=== PATIENT | female | born 1990 | race Caucasian/White ===

== ENCOUNTER 2017-04-30 09:31 | Inpatient (IN) | payer SELFPAY ==
--- NOTE | 2017-04-30 11:00 | C.PDOC ---
History Of Present Illness Patient is a 27 y/o F with hx of open heart surgery in [place] in 2014 on her "mitral valve" with surgery to valve and "stent" placement. 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 She reports that for the last 2 days she has had persistent b/l sternal chest pain. Denies associated shortness of breath, fever, cough, uri, leg swelling. She reports that she thinks she is . wardsperson:[id number] Time Seen by Provider: 04/30/17 09:55 Chief Complaint (Nursing): Chest Pain Past Medical History Vital Signs: Last Vital Signs Temp 98.8 F 04/30/17 15:38 Pulse 104 H 04/30/17 15:38 Resp 18 04/30/17 15:38 BP 96/67 L 04/30/17 15:38 Pulse Ox 99 04/30/17 15:38 Other Surgeries: mitral valve Family History: States: No Known Family Hx - Social History Hx Alcohol Use: No Hx Substance Use: No Review Of Systems Constitutional: Negative for: Fever, Chills Cardiovascular: Positive for: Chest Pain. Negative for: Palpitations, Orthopnea , Paroxysmal Noc. Dyspnea, Edema, Light Headedness Respiratory: Negative for: Cough, Shortness of Breath, Hemoptysis, SOB with Excertion, Pleuritic Pain, Wheezing Gastrointestinal: Negative for: Nausea, Vomiting, Abdominal Pain, Diarrhea, Constipation Genitourinary: Negative for: Dysuria Neurological: Negative for: Weakness, Numbness Physical Exam - Physical Exam Appears: Well, Non-toxic, No Acute Distress Skin: Normal Color, Warm, Dry Head: Atraumatic, Normacephalic Eye(s): bilateral: Normal Inspection, PERRL, EOMI Neck: Normal ROM Chest: Symmetrical, Other (well healed midline scar) Cardiovascular: Rhythm Regular Respiratory: Normal Breath Sounds, No Rales, No Rhonchi, No Wheezing Gastrointestinal/Abdominal: Soft, No Tenderness, No Mass, No Distention Back: Normal Inspection, No CVA Tenderness ED Course And Treatment - Laboratory Results Result Diagrams: 04/30/17 11:12 04/30/17 11:12 O2 Sat by Pulse Oximetry: 99 Medical Decision Making Medical Decision Making: EKG shows sinus tachycardia at 104bpm. 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 D-dimer negative. Echo done at 1:30. Spoke to side laster staple and echo will not be resulted by today. Concern that patient has hx of rheumatic heart disease and patient could have thrombus, aneurysm or worsening valvular disease. Patient still has chest pain. Spoke to Dr. Worrell. Patient to be kept on tele observation overnight for cardiac monitoring with cardiac reevaluation in am with results of echo. Dr. Vazquez agrees to take patient to his service Abdominal ultrasound showed IUP but will be redone with full bladder for final report as patient is refusing transvaginal ultrasound. Disposition - Disposition Disposition: HOSPITALIZED Disposition Time: 15:34 Condition: FAIR - Clinical Impression Clinical Impression: Chest pain
[2017-04-30 11:19] LABS: BASO % 0.5 % (0.0-2.0); EOS % 0.4 % (0.0-4.0); HEMOGLOBIN 13.3 g/dL (11.0-16.0); LYMPH % 37.8 % (20.0-40.0); MEAN CORPUSCULAR HGB CONC 34.1 g/dL (33.0-37.0); MEAN PLATELET VOLUME 8.6 fL (7.2-11.7); MONO # 0.5 K/uL (0.0-0.8); MONO % 9.8 % (0.0-10.0); NEUT # 2.8 K/uL (1.8-7.0); NEUT % 51.5 % (50.0-75.0); NRBC % 0.1 % (0.0-2.0); RBC 4.57 Mil/uL (3.80-5.20); RED CELL DISTRIBUTION WIDTH 13.1 % (11.5-14.5); WHITE BLOOD COUNT 5.3 K/uL (4.8-10.8)
[2017-04-30 11:26] LABS: INR 1.1; PARTIAL THROMBOPLASTIN TIME 31 SECONDS (21-34); PROTHROMBIN TIME 12.8 SECONDS (9.7-12.2)
[2017-04-30 11:27] LABS: D DIMER < 200 ng/mlDDU (0-243)
--- NOTE | 2017-04-30 11:37 | RAD ---
HISTORY: chest pain COMPARISON: None available TECHNIQUE: Chest, one view. FINDINGS: LUNGS: No focal consolidation. 4 mm nodular density at the right lung base may reflect prominent vessel on end versus calcified granuloma. Please note that chest x-ray has limited sensitivity for the detection of pulmonary masses. PLEURA: No significant pleural effusion identified. No definite pneumothorax . CARDIOVASCULAR: Median sternotomy wires. Cardiac valve prosthesis. Heart size appears within normal limits. OSSEOUS STRUCTURES: No acute osseous abnormality identified. VISUALIZED UPPER ABDOMEN: Mild elevation of the right hemidiaphragm. OTHER FINDINGS: None. IMPRESSION: No acute findings. See above.
[2017-04-30 11:38] LABS: ALBUMIN 4.1 g/dL (3.5-5.0)
[2017-04-30 11:41] LABS: ALB/GLOB RATIO 1.2 (1.0-2.1); AST/SGOT 16 U/L (14-36); BLOOD UREA NITROGEN 5 mg/dL (7-17); GFR AFRICAN-AMERICAN > 60; GFR NON-AFRICAN AMERICAN > 60
[2017-04-30 11:42] LABS: ALT/SGPT 22 U/L (9-52); CALCIUM 8.9 mg/dl (8.6-10.4)
[2017-04-30 11:49] LABS: B-TYPE NATRIURETIC PEPTIDE 494 pg/mL (0-450)
[2017-04-30 12:04] LABS: SQUAMOUS EPITHIAL 9 /hpf (0-5); URINE BILIRUBIN NEGATIVE (NEGATIVE); URINE BLOOD 1+ (NEGATIVE); URINE CLARITY Clear (Clear); URINE COLOR Yellow (YELLOW); URINE GLUCOSE (UA) NORMAL (Normal); URINE LEUKOCYTE ESTERASE NEG Leu/uL (Negative); URINE NITRATE NEGATIVE (NEGATIVE); URINE PROTEIN NEGATIVE (NEGATIVE); URINE UROBILINOGEN NORMAL mg/dL (0.2-1.0)
--- NOTE | 2017-04-30 17:36 | CARD ---
APPROVED REPORT EXAM: Two-dimensional and M-mode echocardiogram with Doppler and color Doppler. Other Information Quality : GoodRhythm : INDICATION Chest Pain M-Mode DIMENSIONS RVDd0.99 (2.1-3.2cm)Left Atrium (MM)2.40 (2.5-4.0cm) IVSd0.70 (0.7-1.1cm)Aortic Root2.31 (2.2-3.7cm) LVDd5.64 (4.0-5.6cm)Aortic Cusp Exc.1.49 (1.5-2.0cm) PWd0.90 (0.7-1.1cm)FS (%) 13 % LVDs4.93 (2.0-3.8cm)LVEF (%)27 (>50%) Aortic Valve AoV Peak Surugiin561.5cm/S[place] Peak GR.8mmHg Mitral Valve MV E Fytxhofz629.2cm/sMV A Yldodifh307.9cm/sMV THA77qw E/A ratio0.8MVA (PHT)4.25cm2 TDI E/Lateral E'0.0E/Medial E'0.0 Tricuspid Valve TR Peak Ghqzquvo563bf/sTR Peak Gr.71cjDkMZLT03htSa LEFT VENTRICLE The Left Ventricle is mildly dilated. There is normal left ventricular wall thickness. The systolic function is moderately to severely impaired. The Ejection Fraction is 30-35%. There is global hypokinesis of the left ventricle. The left ventricular diastolic function is normal. No left ventricle thrombus noted on this study. There is no ventricular septal defect visualized. There is no left ventricular aneurysm. There is no mass noted in the left ventricle. RIGHT VENTRICLE The right ventricle is normal size. There is normal right ventricular wall thickness. The right ventricular systolic function is normal. ATRIA The left atrium size is normal. The right atrium size is normal. The interatrial septum is intact with no evidence for an atrial septal defect. AORTIC VALVE The aortic valve is normal in structure and function. No aortic regurgitation is present. There is no aortic valvular stenosis. There is no aortic valvular vegetation. MITRAL VALVE The mitral valve is normal in structure and function. There is no evidence of mitral valve prolapse. There is no mitral valve stenosis. Mitral regurgitation is mild to moderate. Annuloplasty ring is noted in the mitral position. TRICUSPID VALVE The tricuspid valve is normal in structure and function. There is mild tricuspid regurgitation. There is no tricuspid valve prolapse or vegetation. There is no tricuspid valve stenosis. PULMONIC VALVE The pulmonary valve is normal in structure and function. There is no pulmonic valvular regurgitation. There is no pulmonic valvular stenosis. GREAT VESSELS The aortic root is normal in size. The ascending aorta is normal in size. The pulmonary artery is normal. The IVC is normal in size and collapses >50% with inspiration. PERICARDIAL EFFUSION The pericardium appears normal. There is no pleural effusion. <Conclusion> The Left Ventricle is mildly dilated. The systolic function is moderately to severely impaired. The Ejection Fraction is 30-35%. The left ventricular diastolic function is normal. Annuloplasty ring is noted in the mitral position. Mitral regurgitation is mild to moderate.
--- NOTE | 2017-04-30 17:53 | CP.PCM.HP ---
<Haseeb Arriaga - Last Filed: 04/30/17 20:22> History of Present Illness - History of Present Illness History of Present Illness: PGY-1 H & P for Dr. Rachel Vazquez This is a 27 year old belarusian speaking female with PMHx rheumatic heart disease s/p mitral valve repair and stent who comes in complaining of chest pain. It began yesterday 04/29/17 and has been constant since. It is located diffusely across both sides of her chest with no radiation of pain. Patient is also experiencing pain in both shoulders and the front of the neck. Patient has had this type of pain before in [place] and was discharged without a specific diagnosis explained to the patient. Patient has associated palpitations and dizziness. Patient describes dizziness as feeling that the room is spinning. Patient denies numbness, shortness of breath, rashes. Patient has been given 650 mg Tylenol in the ED and reported improvement in pain. Patient had likely streptococcal infection in [place] described in the ED note as "tonsillitis" which led to development of rheumatic heart disease. Patient states that her mitral valve was blocked and had open heart surgery to repair and stent with a ring. This surgery occurred two and a half years ago. Per patient, she has been on an unknown blood thinner since the surgery but has stopped taking it about 4 months ago without notifying her doctor. Patient states that she did this because she was planning to conceive. Patient is about 6 weeks per b- HCG level interpretation. PMHx: Likely streptococcal infection leading to rheumatic heart disease PSHx: Open heart surgery 2.5 years ago Allergies: NKDA Social: Denies ever smoking. Denies alcohol, drugs. Not currently employed. Family Hx: When asked, patient motioned to the neck but then denied family history upon further questioning. Home Meds: None. Present on Admission - Present on Admission Any Indicators Present on Admission: No Review of Systems - Constitutional Constitutional: absent: Fever, Headache, Weakness - EENT Eyes: absent: Change in Vision Ears: absent: Decreased Hearing Nose/Mouth/Throat: absent: Nasal Congestion - Cardiovascular Cardiovascular: Chest Pain, Palpitations, Rapid Heart Rate - Respiratory Respiratory: absent: Cough, Dyspnea - Gastrointestinal Gastrointestinal: absent: Abdominal Pain, Constipation, Diarrhea, Nausea, Vomiting - Genitourinary Genitourinary: absent: Dysuria - Musculoskeletal Musculoskeletal: Neck Pain - Neurological Neurological: Dizziness. absent: Numbness, Headaches, Tingling, Weakness - Endocrine Endocrine: Palpitations Past Patient History - Past Social History Smoking Status: Never Smoked - PSYCHIATRIC Hx Substance Use: No - SURGICAL HISTORY Hx Valve Replacement: Yes - ANESTHESIA Hx Anesthesia: Yes Meds Allergies/Adverse Reactions: Allergies Allergy/AdvReac Type Severity Reaction Status Date / Time No Known Allergies Allergy Verified 04/30/17 09:48 Physical Exam - Constitutional Appears: No Acute Distress - Head Exam Head Exam: ATRAUMATIC, NORMAL INSPECTION, NORMOCEPHALIC - Eye Exam Eye Exam: EOMI, PERRL - ENT Exam ENT Exam: Mucous Membranes Moist - Respiratory Exam Respiratory Exam: Clear to Auscultation Bilateral - Cardiovascular Exam Cardiovascular Exam: Tachycardia, REGULAR RHYTHM, +S1, +S2 - GI/Abdominal Exam GI & Abdominal Exam: Normal Bowel Sounds, Soft - Extremities Exam Extremities exam: Negative for: pedal edema, tenderness - Neurological Exam Neurological exam: Alert, CN II-XII Intact, Oriented x3 - Skin Skin Exam: Dry, Intact, Normal Color, Warm Results - Vital Signs Recent Vital Signs: Last Vital Signs Temp 97.8 F 04/30/17 17:03 Pulse 103 H 04/30/17 17:03 Resp 22 04/30/17 17:03 BP 93/60 L 04/30/17 17:03 Pulse Ox 97 04/30/17 17:03 - Labs Result Diagrams: 04/30/17 11:12 04/30/17 11:12 Assessment & Plan - Assessment and Plan (Free Text) Plan: 1. Chest pain EKG in ER revealed Sinus Tachycardia. JUSTINO Panel negative F/u EKG and JUSTINO Q6 x2 CBC, CMP, TSH, free T4, Lipid Panel, Hemoglobin A1C in AM Echocardiogram revealed EF of 30-35%. Systolic function is moderately to severely impaired. Diastolic function is normal. Mild to moderate mitral regurgitation. Annuloplasty ring noted in mitral position. Cardio Dr. Hargrove consulted. Help appreciated. 2. b-HCG levels, correlating with likely 6-7 weeks of Transvaginal ultrasound revealed live single intrauterine estimated 6 weeks and 2 days with heart rate 127.8 Folic acid, vitamin B12, vitamin D levels in AM Multivitamin PO 3. Prophylactic Measure SCDs Ambulatory Heart Healthy Diet Case discussed with Dr. Rachel Arriaga PGY1 - Date & Time Date: 04/30/17 Time: 16:30 <Aj Vazquez - Last Filed: 05/01/17 15:20> Results - Vital Signs Recent Vital Signs: Last Vital Signs Temp 98.0 F 05/01/17 08:22 Pulse 96 H 05/01/17 08:22 Resp 20 05/01/17 08:22 BP 92/60 L 05/01/17 08:22 Pulse Ox 99 05/01/17 08:22 - Labs Result Diagrams: 05/01/17 06:44 05/01/17 06:44 Labs: Laboratory Results - last 24 hr 04/30/17 05/01/17 05/01/17 18:43 02:11 06:44 WBC 5.7 RBC 4.66 Hgb 13.4 Hct 39.6 MCV 85.0 MCH 28.8 MCHC 33.9 RDW 12.9 Plt Count 219 MPV 8.9 Neut % (Auto) 40.9 L Lymph % (Auto) 48.2 H Roane % (Auto) 9.4 Eos % (Auto) 1.0 Baso % (Auto) 0.5 Neut # 2.3 Lymph # 2.8 Roane # 0.5 Eos # 0.1 Baso # 0.0 Sodium Potassium Chloride Carbon Dioxide Anion Gap BUN Creatinine Est GFR ( Amer) Est GFR (Non-Af Amer) Random Glucose Hemoglobin A1c Calcium Total Bilirubin AST ALT Alkaline Phosphatase Total Creatine Kinase 35 31 CK-MB (Mass) < 0.22 < 0.22 Troponin I, Quant < 0.0120 < 0.0120 Total Protein Albumin Globulin Albumin/Globulin Ratio Triglycerides Cholesterol LDL Cholesterol Direct HDL Cholesterol Vitamin B12 25-OH Vitamin D Total Folate Free T4 TSH 3rd Generation 05/01/17 05/01/17 05/01/17 06:44 06:44 06:44 WBC RBC Hgb Hct MCV MCH MCHC RDW Plt Count MPV Neut % (Auto) Lymph % (Auto) Roane % (Auto) Eos % (Auto) Baso % (Auto) Neut # Lymph # Roane # Eos # Baso # Sodium 137 Potassium 3.9 Chloride 101 Carbon Dioxide 22 Anion Gap 18 BUN 6 L Creatinine 0.5 L Est GFR ( Amer) > 60 Est GFR (Non-Af Amer) > 60 Random Glucose 80 Hemoglobin A1c 4.8 Calcium 8.9 Total Bilirubin 0.6 AST 12 L D ALT 18 Alkaline Phosphatase 33 L Total Creatine Kinase CK-MB (Mass) Troponin I, Quant Total Protein 6.8 Albumin 4.0 Globulin 2.8 Albumin/Globulin Ratio 1.4 Triglycerides 80 D Cholesterol 112 LDL Cholesterol Direct 78 HDL Cholesterol 34 Vitamin B12 547 25-OH Vitamin D Total Folate > 20.0 Free T4 0.98 TSH 3rd Generation 1.88 05/01/17 06:44 WBC RBC Hgb Hct MCV MCH MCHC RDW Plt Count MPV Neut % (Auto) Lymph % (Auto) Roane % (Auto) Eos % (Auto) Baso % (Auto) Neut # Lymph # Roane # Eos # Baso # Sodium Potassium Chloride Carbon Dioxide Anion Gap BUN Creatinine Est GFR ( Amer) Est GFR (Non-Af Amer) Random Glucose Hemoglobin A1c Calcium Total Bilirubin AST ALT Alkaline Phosphatase Total Creatine Kinase CK-MB (Mass) Troponin I, Quant Total Protein Albumin Globulin Albumin/Globulin Ratio Triglycerides Cholesterol LDL Cholesterol Direct HDL Cholesterol Vitamin B12 25-OH Vitamin D Total 21.8 L Folate Free T4 TSH 3rd Generation Attending/Attestation - Attestation I have personally seen and examined this patient.: Yes I have fully participated in the care of the patient.: Yes I have reviewed all pertinent clinical information: Yes Notes (Text): 05/01/17 15:20 Patient seen and examined at bedside with the resident Patient denies any chest pain at this time We will admit the patient to rule out acute coronary syndrome We will request cardiology and the DYE FEEDER evaluation for the patient I discussed the plan of care with the resident and agree with the history and physical and assessment/plan documented.
--- NOTE | 2017-04-30 18:01 | US ---
Indication: , abdominal pain Comparison: None available. Technique: Transabdominal pelvic ultrasound Findings: The uterus measures approximately 9.4 x 5.5 x 5.4 cm. Anteverted. Cervix length measures approximately 3.5 cm. There is a single intrauterine fetus present. 3 mm yolk sac. The crown-rump length measures 0.6 cm and is compatible with a gestational age of 6 weeks 2 days. 1.7 x 0.8 x 1.1 cm hypodensity, likely small subchorionic hemorrhage. There is heart motion which measured 127.8 BPM. The right ovary measures 4.2 x 2.4 x 3.2 cm. The left ovary measures 2.6 x 2.0 x 2.4 cm. Blood flow was demonstrated to both ovaries. Small free fluid, cul-de-sac. Impression: Live single intrauterine with estimated gestational age 6 weeks 2 days. heart rate 127.8 bpm. Probable small subchorionic hemorrhage measuring approximately 1.7 x 0.8 x 1.1 cm. Small free fluid, cul-de-sac. Advise an anomaly screen at 16-18 weeks gestational age
[2017-04-30] MEDS ORDERED: Prenatal Multivit/Folic Acid/Iron Tab PO SCH (19:00)
[2017-04-30 19:09] LABS: CK-MB < 0.22 ng/mL (0.0-3.38)
[2017-04-30] MEDS: Prenatal Multivit/Folic Acid/Iron Tab PO SCH (19:40)
--- NOTE | 2017-04-30 22:53 | CP.PCM.CON ---
Past Patient History - Past Medical History & Family History Past Medical History?: Yes - Past Social History Smoking Status: Never Smoked - CARDIAC Other/Comment: rheumatic heart disease - MUSCULOSKELETAL/RHEUMATOLOGICAL Hx Falls: No - PSYCHIATRIC Hx Substance Use: No - SURGICAL HISTORY Hx Valve Replacement: Yes - ANESTHESIA Hx Anesthesia: Yes Meds Allergies/Adverse Reactions: Allergies Allergy/AdvReac Type Severity Reaction Status Date / Time No Known Allergies Allergy Verified 04/30/17 09:48 - Medications Medications: Current Medications Multivit/Folic Acid/Iron () 1 tab PO DAILY [facility] Last Admin: 04/30/17 19:40 Dose: 1 tab Results - Vital Signs Recent Vital Signs: Last Vital Signs Temp 98.0 F 04/30/17 18:18 Pulse 96 H 04/30/17 18:18 Resp 20 04/30/17 18:18 BP 103/67 04/30/17 18:18 Pulse Ox 100 04/30/17 18:18 - Labs Result Diagrams: 04/30/17 11:12 04/30/17 11:12 Labs: Laboratory Results - last 24 hr 04/30/17 18:43 Total Creatine Kinase 35 CK-MB (Mass) < 0.22 Troponin I, Quant < 0.0120
[2017-05-01 02:33] LABS: CK-MB < 0.22 ng/mL (0.0-3.38)
[2017-05-01 07:03] LABS: ALB/GLOB RATIO 1.4 (1.0-2.1); ALT/SGPT 18 U/L (9-52); AST/SGOT 12 U/L (14-36); BLOOD UREA NITROGEN 6 mg/dL (7-17); CALCIUM 8.9 mg/dl (8.6-10.4); GFR AFRICAN-AMERICAN > 60; GFR NON-AFRICAN AMERICAN > 60; HDL CHOLESTEROL 34 mg/dL (30-70)
[2017-05-01 07:04] LABS: BASO % 0.5 % (0.0-2.0); EOS # 0.1 K/uL (0.0-0.7); HEMOGLOBIN 13.4 g/dL (11.0-16.0); LYMPH # 2.8 K/uL (1.0-4.3); LYMPH % 48.2 % (20.0-40.0); MEAN CORPUSCULAR HEMOGLOBIN 28.8 pg (27.0-31.0); MEAN CORPUSCULAR HGB CONC 33.9 g/dL (33.0-37.0); MEAN PLATELET VOLUME 8.9 fL (7.2-11.7); MONO # 0.5 K/uL (0.0-0.8); MONO % 9.4 % (0.0-10.0); NEUT # 2.3 K/uL (1.8-7.0); NEUT % 40.9 % (50.0-75.0); RBC 4.66 Mil/uL (3.80-5.20); RED CELL DISTRIBUTION WIDTH 12.9 % (11.5-14.5); WHITE BLOOD COUNT 5.7 K/uL (4.8-10.8)
[2017-05-01 07:14] LABS: LDL CHOLESTEROL 78 mg/dL (0-129)
[2017-05-01 08:06] LABS: FOLATE > 20.0 ng/mL
[2017-05-01] MEDS: Prenatal Multivit/Folic Acid/Iron Tab PO SCH (09:24)
--- NOTE | 2017-05-01 13:02 | CARD ---
APPROVED REPORT EKG Measurement Heart [id number] <Conclusion> Sinus tachycardia Cannot rule out Anterior infarct, age undetermined Abnormal ECG
--- NOTE | 2017-05-01 14:28 | CP.PCM.HP ---
Past Patient History - Past Medical History & Family History Past Medical History?: Yes - Past Social History Smoking Status: Never Smoked - CARDIAC Other/Comment: rheumatic heart disease - MUSCULOSKELETAL/RHEUMATOLOGICAL Hx Falls: No - PSYCHIATRIC Hx Substance Use: No - SURGICAL HISTORY Hx Valve Replacement: Yes - ANESTHESIA Hx Anesthesia: Yes Meds Allergies/Adverse Reactions: Allergies Allergy/AdvReac Type Severity Reaction Status Date / Time No Known Allergies Allergy Verified 04/30/17 09:48 Results - Vital Signs Recent Vital Signs: Last Vital Signs Temp 98.0 F 05/01/17 08:22 Pulse 96 H 05/01/17 08:22 Resp 20 05/01/17 08:22 BP 92/60 L 05/01/17 08:22 Pulse Ox 99 05/01/17 08:22 - Labs Result Diagrams: 05/01/17 06:44 05/01/17 06:44 Labs: Laboratory Results - last 24 hr 04/30/17 05/01/17 05/01/17 18:43 02:11 06:44 WBC 5.7 RBC 4.66 Hgb 13.4 Hct 39.6 MCV 85.0 MCH 28.8 MCHC 33.9 RDW 12.9 Plt Count 219 MPV 8.9 Neut % (Auto) 40.9 L Lymph % (Auto) 48.2 H Chambers % (Auto) 9.4 Eos % (Auto) 1.0 Baso % (Auto) 0.5 Neut # 2.3 Lymph # 2.8 Chambers # 0.5 Eos # 0.1 Baso # 0.0 Sodium Potassium Chloride Carbon Dioxide Anion Gap BUN Creatinine Est GFR ( Amer) Est GFR (Non-Af Amer) Random Glucose Hemoglobin A1c Calcium Total Bilirubin AST ALT Alkaline Phosphatase Total Creatine Kinase 35 31 CK-MB (Mass) < 0.22 < 0.22 Troponin I, Quant < 0.0120 < 0.0120 Total Protein Albumin Globulin Albumin/Globulin Ratio Triglycerides Cholesterol LDL Cholesterol Direct HDL Cholesterol Vitamin B12 25-OH Vitamin D Total Folate Free T4 TSH 3rd Generation 05/01/17 05/01/17 05/01/17 06:44 06:44 06:44 WBC RBC Hgb Hct MCV MCH MCHC RDW Plt Count MPV Neut % (Auto) Lymph % (Auto) Chambers % (Auto) Eos % (Auto) Baso % (Auto) Neut # Lymph # Chambers # Eos # Baso # Sodium 137 Potassium 3.9 Chloride 101 Carbon Dioxide 22 Anion Gap 18 BUN 6 L Creatinine 0.5 L Est GFR ( Amer) > 60 Est GFR (Non-Af Amer) > 60 Random Glucose 80 Hemoglobin A1c 4.8 Calcium 8.9 Total Bilirubin 0.6 AST 12 L D ALT 18 Alkaline Phosphatase 33 L Total Creatine Kinase CK-MB (Mass) Troponin I, Quant Total Protein 6.8 Albumin 4.0 Globulin 2.8 Albumin/Globulin Ratio 1.4 Triglycerides 80 D Cholesterol 112 LDL Cholesterol Direct 78 HDL Cholesterol 34 Vitamin B12 547 25-OH Vitamin D Total Folate > 20.0 Free T4 0.98 TSH 3rd Generation 1.88 05/01/17 06:44 WBC RBC Hgb Hct MCV MCH MCHC RDW Plt Count MPV Neut % (Auto) Lymph % (Auto) Chambers % (Auto) Eos % (Auto) Baso % (Auto) Neut # Lymph # Chambers # Eos # Baso # Sodium Potassium Chloride Carbon Dioxide Anion Gap BUN Creatinine Est GFR ( Amer) Est GFR (Non-Af Amer) Random Glucose Hemoglobin A1c Calcium Total Bilirubin AST ALT Alkaline Phosphatase Total Creatine Kinase CK-MB (Mass) Troponin I, Quant Total Protein Albumin Globulin Albumin/Globulin Ratio Triglycerides Cholesterol LDL Cholesterol Direct HDL Cholesterol Vitamin B12 25-OH Vitamin D Total 21.8 L Folate Free T4 TSH 3rd Generation
--- NOTE | 2017-05-01 14:33 | CP.PCM.PN ---
Addendum entered and electronically signed by Spring Hernandez DO 05/01/17 14:42 : As per conversation with EVENT SECURITY OFFICER- patient can be discharged once cleared from cardio. Recommended to follow up with an OB, if patient does not have one, she can be seen in the [facility]. Original Note: <Spring Hernandez - Last Filed: 05/01/17 14:28> Subjective - Date & Time of Evaluation Date of Evaluation: 05/01/17 Time of Evaluation: 11:00 - Subjective Subjective: Medicine Note for Dr. Vazquez Patient was seen and examined at bedside. No acute complaints. Patient was concerned on when she would go home. Denied fever, chills, headache, abdominal pain, n/v/d/c, or urinary symptoms. Objective - Vital Signs/Intake and Output Vital Signs (last 24 hours): Temp Pulse Resp BP Pulse Ox 98.0 F 96 H 20 92/60 L 99 05/01/17 08:22 05/01/17 08:22 05/01/17 08:22 05/01/17 08:22 05/01/17 08:22 - Medications Medications: Current Medications Multivit/Folic Acid/Iron () 1 tab PO DAILY [facility] Last Admin: 05/01/17 09:24 Dose: 1 tab - Labs Labs: 05/01/17 06:44 05/01/17 06:44 PT 12.8 SECONDS (9.7-12.2) H 04/30/17 11:12 INR 1.1 04/30/17 11:12 APTT 31 SECONDS (21-34) 04/30/17 11:12 - Constitutional Appears: No Acute Distress - Head Exam Head Exam: NORMAL INSPECTION, NORMOCEPHALIC - Eye Exam Eye Exam: EOMI, Normal appearance, PERRL Pupil Exam: NORMAL ACCOMODATION - ENT Exam ENT Exam: Mucous Membranes Moist - Neck Exam Neck Exam: Normal Inspection - Respiratory Exam Respiratory Exam: Clear to Ausculation Bilateral, NORMAL BREATHING PATTERN. absent: Wheezes - Cardiovascular Exam Cardiovascular Exam: REGULAR RHYTHM, RRR, +S1, +S2 - GI/Abdominal Exam GI & Abdominal Exam: Soft, Normal Bowel Sounds. absent: Distended, Tenderness Additional comments: gravid abdomen - Extremities Exam Extremities Exam: Normal Inspection. absent: Pedal Edema, Tenderness - Neurological Exam Neurological Exam: Alert, Awake, Oriented x3 - Psychiatric Exam Psychiatric exam: Normal Affect, Normal Mood - Skin Skin Exam: Dry, Intact, Normal Color, Warm Assessment and Plan - Assessment and Plan (Free Text) Plan: Chest pain * EKG in ER revealed Sinus Tachycardia. JUSTINO x3 Negative, EKG x2 NSR * CBC, CMP, TSH, free T4, Lipid Panel, Hemoglobin A1C all WNL * Echocardiogram revealed EF of 30-35%. Systolic function is moderately to severely impaired. Diastolic function is normal. Mild to moderate mitral regurgitation. Annuloplasty ring noted in mitral position. * Cardio Dr. Hargrove consulted. Help appreciated. * b-HCG levels, correlating with likely 6-7 weeks of * Transvaginal ultrasound revealed live single intrauterine estimated 6 weeks and 2 days with heart rate 127.8 * Folic acid and vitamin B12 - WNL * Vitamin D - low * Multivitamin PO * EVENT SECURITY OFFICER consulted -help appreciated Prophylactic Measure * SCDs, VTE c/i due to * Ambulatory * Heart Healthy Diet DW Mary Fisher DO, PGY-1 <Aj Vazquez M - Last Filed: 05/02/17 12:06> Objective - Vital Signs/Intake and Output Vital Signs (last 24 hours): Temp Pulse Resp BP Pulse Ox 97.8 F 91 H 20 96/65 L 100 05/02/17 07:05 05/02/17 08:00 05/02/17 07:05 05/02/17 07:05 05/02/17 07:05 - Medications Medications: Current Medications Acetaminophen (Tylenol 325mg Tab) 650 mg PO Q6 PRN PRN Reason: Pain, Mild (1-3) Aspirin (Aspirin Chewable) 81 mg PO DAILY [facility] Last Admin: 05/02/17 09:42 Dose: 81 mg Pneumococcal Polyvalent Vaccine (Pneumovax 23 Vaccine) 0.5 ml IM .ONCE ONE Stop: 05/03/17 14:01 Multivit/Folic Acid/Iron () 1 tab PO DAILY [facility] Last Admin: 05/02/17 09:42 Dose: 1 tab - Labs Labs: PT 12.8 SECONDS (9.7-12.2) H 04/30/17 11:12 INR 1.1 04/30/17 11:12 APTT 31 SECONDS (21-34) 04/30/17 11:12 Attending/Attestation - Attestation I have personally seen and examined this patient.: Yes I have fully participated in the care of the patient.: Yes I have reviewed all pertinent clinical information, including history, physical exam and plan: Yes Notes (Text): 05/02/17 12:05 Patient was seen and examined at bedside with the resident Patient is comfortable EVENT SECURITY OFFICER and cardiology evaluation noted Follow-up the recommendations Agree with assessment and plan documented by the resident
--- NOTE | 2017-05-01 15:20 | CP.PCM.CON ---
History of Present Illness - History of Present Illness History of Present Illness: Ms. Jasso is a 27 year old khmer speaking female with PMHx rheumatic heart disease s/p mitral valve repair and stent who comes in complaining of chest pain. It began 04/29/17 and was constant. It was located diffusely across both sides of her chest with no radiation of pain. Patient was also experiencing pain in both shoulders and the front of the neck. Patient has had this type of pain before in [place] and was discharged without a specific diagnosis explained to the patient. Patient has associated palpitations and dizziness. Patient describes dizziness as feeling that the room is spinning. Patient denies numbness, shortness of breath, rashes. Patient has been given 650 mg Tylenol in the ED and reported improvement in pain. Patient had likely streptococcal infection in [place] described in the ED note as "tonsillitis" which led to development of rheumatic heart disease. Patient states that her mitral valve was blocked and had open heart surgery to repair and stent with a ring. This surgery occurred two and a half years ago. Per patient, she has been on an unknown blood thinner since the surgery but has stopped taking it about 4 months ago without notifying her doctor. Patient states that she did this because she was planning to conceive. Patient is about 6 weeks per b- HCG level interpretation. PMHx: Likely streptococcal infection leading to rheumatic heart disease PSHx: Open heart surgery 2.5 years ago Allergies: NKDA Social: Denies ever smoking. Denies alcohol, drugs. Not currently employed. 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 Menarche 12yo Pt currently denies any cp, sob, abdominal pain, vaginal bleeding, discharge or urinary changes. Review of Systems - Review of Systems All systems: reviewed and no additional remarkable complaints except - Constitutional Constitutional: As Per HPI - EENT Eyes: As Per HPI Ears: As Per HPI Nose/Mouth/Throat: As Per HPI - Cardiovascular Cardiovascular: As Per HPI. absent: Chest Pain, Chest Pain at Rest - Respiratory Respiratory: As Per HPI - Gastrointestinal Gastrointestinal: As Per HPI. absent: Abdominal Pain, Change in Bowel Habits, Constipation, Diarrhea, Hematemesis, Hematochezia, Vomiting - Genitourinary Genitourinary: As Per HPI. absent: Dysuria, Hematuria - Reproductive: Female Reproductive:Female: absent: Pelvic Pain, Vaginal Discharge, Vaginal Pruritis Additional comments: - Musculoskeletal Musculoskeletal: As Per HPI - Integumentary Integumentary: As Per HPI - Neurological Neurological: As Per HPI. absent: Dizziness, Numbness, Focal Weakness Past Patient History - Past Medical History & Family History Past Medical History?: Yes - Past Social History Smoking Status: Never Smoked Alcohol: None Drugs: Denies Home Situation {Lives}: With Family - CARDIAC Hx Cardiac Disorders: Yes (s/p MVR and stent) Hx Atrial Fibrillation: No Other/Comment: rheumatic heart disease - PULMONARY Hx Respiratory Disorders: No - NEUROLOGICAL Hx Neurological Disorder: No HX Cerebrovascular Accident: No - RENAL Hx Chronic Kidney Disease: No - HEMATOLOGICAL/ONCOLOGICAL Hx Blood Disorders: No - MUSCULOSKELETAL/RHEUMATOLOGICAL Hx Falls: No - GASTROINTESTINAL Hx Gastrointestinal Disorders: No - GENITOURINARY/GYNECOLOGICAL Hx Genitourinary Disorders: No - PSYCHIATRIC Hx Substance Use: No - SURGICAL HISTORY Hx Surgeries: Yes Hx Valve Replacement: Yes (required open heart) - ANESTHESIA Hx Anesthesia: Yes Meds Allergies/Adverse Reactions: Allergies Allergy/AdvReac Type Severity Reaction Status Date / Time No Known Allergies Allergy Verified 04/30/17 09:48 - Medications Medications: Current Medications Multivit/Folic Acid/Iron () 1 tab PO DAILY [facility] Last Admin: 05/01/17 09:24 Dose: 1 tab Physical Exam - Constitutional Appears: Well, No Acute Distress - Head Exam Head Exam: ATRAUMATIC, NORMAL INSPECTION, NORMOCEPHALIC - Eye Exam Eye Exam: EOMI, Normal appearance, PERRL - ENT Exam ENT Exam: Mucous Membranes Moist, Normal Exam - Neck Exam Neck exam: Positive for: Normal Inspection - Respiratory Exam Respiratory Exam: Clear to Auscultation Bilateral, NORMAL BREATHING PATTERN. absent: Accessory Muscle Use, Rales, Rhonchi, Wheezes - Cardiovascular Exam Cardiovascular Exam: RRR, +S1, +S2. absent: Gallop, Rubs - GI/Abdominal Exam GI & Abdominal Exam: Normal Bowel Sounds, Soft. absent: Distended, Guarding, Tenderness - Extremities Exam Extremities exam: Positive for: normal inspection. Negative for: pedal edema - Neurological Exam Neurological exam: Alert, Oriented x3 - Psychiatric Exam Psychiatric exam: Normal Affect, Normal Mood - Skin Skin Exam: Normal Color, Warm - Additional Findings Additional findings: pt has scar midline chest from prior surgery incision site clean, dry, intact Results - Vital Signs Recent Vital Signs: Last Vital Signs Temp 98.0 F 05/01/17 08:22 Pulse 96 H 05/01/17 08:22 Resp 20 05/01/17 08:22 BP 92/60 L 05/01/17 08:22 Pulse Ox 99 05/01/17 08:22 - Labs Result Diagrams: 05/01/17 06:44 05/01/17 06:44 Labs: Laboratory Results - last 24 hr 04/30/17 05/01/17 05/01/17 18:43 02:11 06:44 WBC 5.7 RBC 4.66 Hgb 13.4 Hct 39.6 MCV 85.0 MCH 28.8 MCHC 33.9 RDW 12.9 Plt Count 219 MPV 8.9 Neut % (Auto) 40.9 L Lymph % (Auto) 48.2 H [place] % (Auto) 9.4 Eos % (Auto) 1.0 Baso % (Auto) 0.5 Neut # 2.3 Lymph # 2.8 [place] # 0.5 Eos # 0.1 Baso # 0.0 Sodium Potassium Chloride Carbon Dioxide Anion Gap BUN Creatinine Est GFR ( Amer) Est GFR (Non-Af Amer) Random Glucose Hemoglobin A1c Calcium Total Bilirubin AST ALT Alkaline Phosphatase Total Creatine Kinase 35 31 CK-MB (Mass) < 0.22 < 0.22 Troponin I, Quant < 0.0120 < 0.0120 Total Protein Albumin Globulin Albumin/Globulin Ratio Triglycerides Cholesterol LDL Cholesterol Direct HDL Cholesterol Vitamin B12 25-OH Vitamin D Total Folate Free T4 TSH 3rd Generation 05/01/17 05/01/17 05/01/17 06:44 06:44 06:44 WBC RBC Hgb Hct MCV MCH MCHC RDW Plt Count MPV Neut % (Auto) Lymph % (Auto) [place] % (Auto) Eos % (Auto) Baso % (Auto) Neut # Lymph # [place] # Eos # Baso # Sodium 137 Potassium 3.9 Chloride 101 Carbon Dioxide 22 Anion Gap 18 BUN 6 L Creatinine 0.5 L Est GFR ( Amer) > 60 Est GFR (Non-Af Amer) > 60 Random Glucose 80 Hemoglobin A1c 4.8 Calcium 8.9 Total Bilirubin 0.6 AST 12 L D ALT 18 Alkaline Phosphatase 33 L Total Creatine Kinase CK-MB (Mass) Troponin I, Quant Total Protein 6.8 Albumin 4.0 Globulin 2.8 Albumin/Globulin Ratio 1.4 Triglycerides 80 D Cholesterol 112 LDL Cholesterol Direct 78 HDL Cholesterol 34 Vitamin B12 547 25-OH Vitamin D Total Folate > 20.0 Free T4 0.98 TSH 3rd Generation 1.88 05/01/17 06:44 WBC RBC Hgb Hct MCV MCH MCHC RDW Plt Count MPV Neut % (Auto) Lymph % (Auto) [place] % (Auto) Eos % (Auto) Baso % (Auto) Neut # Lymph # [place] # Eos # Baso # Sodium Potassium Chloride Carbon Dioxide Anion Gap BUN Creatinine Est GFR ( Amer) Est GFR (Non-Af Amer) Random Glucose Hemoglobin A1c Calcium Total Bilirubin AST ALT Alkaline Phosphatase Total Creatine Kinase CK-MB (Mass) Troponin I, Quant Total Protein Albumin Globulin Albumin/Globulin Ratio Triglycerides Cholesterol LDL Cholesterol Direct HDL Cholesterol Vitamin B12 25-OH Vitamin D Total 21.8 L Folate Free T4 TSH 3rd Generation Assessment & Plan - Assessment and Plan (Free Text) Assessment: 27yo German speaking female PMHx RHD s/p MVR and stent placement presents with chest pain. Pt is 6 weeks as confirmed by transvaginal ultrasound. Plan: 1. - Transvaginal US showed live single intrauterine with crown-rump length is 0.6cm, compatible with GA 6wks and 2 days. FHR 130 Small subchorionic hemorrhage (1.7x0.8x1.1cm) - continue vitamins (pt states that she doesn't have any, so recommend prescribing them to her at d/c, and to get them from [employer] or other location with affordable options) - f/u [facility] on Tuesdays with Dr. Boggs for establishment of care and management - recommend folic acid, MV - avoid teratogenic medications (pt currently prescribed Ramipril which contains blackbox warning for females; Vastarel and Torsemide are both to be used with caution during as there is not enough data on their use; f/u Cardio for appropriate meds change) - beta HC, appropriately increasing 2. Chest pain - per medicine team - adjust medications appropriately, avoid teratogenic meds Patient seen, evaluated and discussed with attending, Dr. Ambrose See PGY1 - Date & Time Date: 05/01/17 Time: 03:00
[2017-05-01 17:21] LABS: CK-MB < 0.22 ng/mL (0.0-3.38)
[2017-05-02 01:30] LABS: CK-MB < 0.22 ng/mL (0.0-3.38)
[2017-05-02 01:44] VITALS: RESP 20
[2017-05-02 07:25] LABS: BASO % 0.6 % (0.0-2.0); EOS % 0.7 % (0.0-4.0); HEMOGLOBIN 13.6 g/dL (11.0-16.0); LYMPH # 2.7 K/uL (1.0-4.3); LYMPH % 44.8 % (20.0-40.0); MEAN CELL VOLUME 84.5 fL (81.0-99.0); MEAN CORPUSCULAR HGB CONC 34.3 g/dL (33.0-37.0); MEAN PLATELET VOLUME 8.6 fL (7.2-11.7); MONO # 0.5 K/uL (0.0-0.8); MONO % 9.1 % (0.0-10.0); NEUT # 2.7 K/uL (1.8-7.0); NEUT % 44.8 % (50.0-75.0); NRBC % 0.1 % (0.0-2.0); RBC 4.68 Mil/uL (3.80-5.20)
[2017-05-02 07:39] LABS: AST/SGOT 14 U/L (14-36); GFR AFRICAN-AMERICAN > 60; GFR NON-AFRICAN AMERICAN > 60
[2017-05-02 07:40] LABS: ALB/GLOB RATIO 1.3 (1.0-2.1); ALT/SGPT 22 U/L (9-52); BLOOD UREA NITROGEN 8 mg/dL (7-17); CALCIUM 8.9 mg/dl (8.6-10.4)
[2017-05-02 07:41] LABS: MAGNESIUM 1.7 mg/dL (1.6-2.3)
[2017-05-02 08:29] VITALS: BP 96/65; TEMP 97.8; O2SAT 100
[2017-05-02 09:10] VITALS: PULSE 91
[2017-05-02] MEDS: Prenatal Multivit/Folic Acid/Iron Tab PO SCH (09:42)
--- NOTE | 2017-05-02 11:37 | CP.PCM.PN ---
Subjective - Date & Time of Evaluation Date of Evaluation: 05/02/17 Time of Evaluation: 11:00 Objective - Vital Signs/Intake and Output Vital Signs (last 24 hours): Temp Pulse Resp BP Pulse Ox 97.8 F 91 H 20 96/65 L 100 05/02/17 07:05 05/02/17 08:00 05/02/17 07:05 05/02/17 07:05 05/02/17 07:05 - Medications Medications: Current Medications Acetaminophen (Tylenol 325mg Tab) 650 mg PO Q6 PRN PRN Reason: Pain, Mild (1-3) Aspirin (Aspirin Chewable) 81 mg PO DAILY [facility] Last Admin: 05/02/17 09:42 Dose: 81 mg Pneumococcal Polyvalent Vaccine (Pneumovax 23 Vaccine) 0.5 ml IM .ONCE ONE Stop: 05/03/17 14:01 Multivit/Folic Acid/Iron () 1 tab PO DAILY [facility] Last Admin: 05/02/17 09:42 Dose: 1 tab - Labs Labs: PT 12.8 SECONDS (9.7-12.2) H 04/30/17 11:12 INR 1.1 04/30/17 11:12 APTT 31 SECONDS (21-34) 04/30/17 11:12
--- NOTE | 2017-05-02 13:46 | CP.PCM.DIS ---
Provider - Provider Date of Admission: 05/02/17 08:49 Attending physician: Aj Vazquez MD Primary care physician: none Consults: Dr. Hargrove - cardiology Dr. Ambrose KONG Time Spent in preparation of Discharge (in minutes): 35 Diagnosis - Discharge Diagnosis (1) S/P heart valve repair Status: Acute (2) Status: Acute (3) Chest pain Status: Acute Hospital Course - Lab Results Lab Results: Most Recent Lab Values WBC 6.0 K/uL (4.8-10.8) 05/02/17 07:16 RBC 4.68 Mil/uL (3.80-5.20) 05/02/17 07:16 Hgb 13.6 g/dL (11.0-16.0) 05/02/17 07:16 Hct 39.5 % (34.0-47.0) 05/02/17 07:16 MCV 84.5 fL (81.0-99.0) 05/02/17 07:16 MCH 29.0 pg (27.0-31.0) 05/02/17 07:16 MCHC 34.3 g/dL (33.0-37.0) 05/02/17 07:16 RDW 13.0 % (11.5-14.5) 05/02/17 07:16 Plt Count 213 K/uL (130-400) 05/02/17 07:16 MPV 8.6 fL (7.2-11.7) 05/02/17 07:16 Neut % (Auto) 44.8 % (50.0-75.0) L 05/02/17 07:16 Lymph % (Auto) 44.8 % (20.0-40.0) H 05/02/17 07:16 [place] % (Auto) 9.1 % (0.0-10.0) 05/02/17 07:16 Eos % (Auto) 0.7 % (0.0-4.0) 05/02/17 07:16 Baso % (Auto) 0.6 % (0.0-2.0) 05/02/17 07:16 Neut # 2.7 K/uL (1.8-7.0) 05/02/17 07:16 Lymph # 2.7 K/uL (1.0-4.3) 05/02/17 07:16 [place] # 0.5 K/uL (0.0-0.8) 05/02/17 07:16 Eos # 0.0 K/uL (0.0-0.7) 05/02/17 07:16 Baso # 0.0 K/uL (0.0-0.2) 05/02/17 07:16 PT 12.8 SECONDS (9.7-12.2) H 04/30/17 11:12 INR 1.1 04/30/17 11:12 APTT 31 SECONDS (21-34) 04/30/17 11:12 D-Dimer, Quantitative < 200 ng/mlDDU (0-243) 04/30/17 11:12 Sodium 137 mmol/L (132-148) 05/02/17 07:16 Potassium 4.1 mmol/L (3.6-5.2) 05/02/17 07:16 Chloride 99 mmol/L (98-107) 05/02/17 07:16 Carbon Dioxide 23 mmol/L (22-30) 05/02/17 07:16 Anion Gap 20 (10-20) 05/02/17 07:16 BUN 8 mg/dL (7-17) 05/02/17 07:16 Creatinine 0.5 MG/DL (0.7-1.2) L 05/02/17 07:16 Est GFR ( Amer) > 60 05/02/17 07:16 Est GFR (Non-Af Amer) > 60 05/02/17 07:16 Random Glucose 82 mg/dL (65-105) 05/02/17 07:16 Hemoglobin A1c 4.8 % (4.2-6.5) 05/01/17 06:44 Calcium 8.9 mg/dl (8.6-10.4) 05/02/17 07:16 Phosphorus 4.0 mg/dL (2.5-4.5) 05/02/17 07:16 Magnesium 1.7 mg/dL (1.6-2.3) 05/02/17 07:16 Total Bilirubin 0.8 mg/dL (0.2-1.3) 05/02/17 07:16 AST 14 U/L (14-36) 05/02/17 07:16 ALT 22 U/L (9-52) 05/02/17 07:16 Alkaline Phosphatase 34 U/L (38-126) L 05/02/17 07:16 Total Creatine Kinase 34 U/L (30-135) 05/02/17 01:08 CK-MB (Mass) < 0.22 ng/mL (0.0-3.38) 05/02/17 01:08 Troponin I < 0.0120 ng/mL (0.00-0.120) 04/30/17 11:12 Troponin I, Quant < 0.0120 ng/mL (0.00-0.120) 05/02/17 01:08 NT-Pro-B Natriuret Pep 494 pg/mL (0-450) H 04/30/17 11:12 Total Protein 7.1 g/dL (6.3-8.3) 05/02/17 07:16 Albumin 4.0 g/dL (3.5-5.0) 05/02/17 07:16 Globulin 3.1 gm/dL (2.2-3.9) 05/02/17 07:16 Albumin/Globulin Ratio 1.3 (1.0-2.1) 05/02/17 07:16 Triglycerides 80 mg/dL (0-149) D 05/01/17 06:44 Cholesterol 112 mg/dL (0-199) 05/01/17 06:44 LDL Cholesterol Direct 78 mg/dL (0-129) 05/01/17 06:44 HDL Cholesterol 34 mg/dL (30-70) 05/01/17 06:44 Vitamin B12 547 pg/mL (239-931) 05/01/17 06:44 25-OH Vitamin D Total 21.8 NG/ML (30.0-100.0) L 05/01/17 06:44 Folate > 20.0 ng/mL 05/01/17 06:44 Free T4 0.98 ng/dL (0.78-2.19) 05/01/17 06:44 TSH 3rd Generation 1.88 mIU/L (0.46-4.68) 05/01/17 06:44 Beta HCG, Quant 52650.00 mIU/ML 04/30/17 11:12 Urine Color Yellow (YELLOW) 04/30/17 11:49 Urine Clarity Clear (Clear) 04/30/17 11:49 Urine pH 6.0 (5.0-8.0) 04/30/17 11:49 Ur Specific [place] 1.019 (1.003-1.030) 04/30/17 11:49 Urine Protein Negative mg/dL (NEGATIVE) 04/30/17 11:49 Urine Glucose (UA) Normal mg/dL (Normal) 04/30/17 11:49 Urine Ketones Negative mg/dL (NEGATIVE) 04/30/17 11:49 Urine Blood 1+ (NEGATIVE) H 04/30/17 11:49 Urine Nitrate Negative (NEGATIVE) 04/30/17 11:49 Urine Bilirubin Negative (NEGATIVE) 04/30/17 11:49 Urine Urobilinogen Normal mg/dL (0.2-1.0) 04/30/17 11:49 Ur Leukocyte Esterase Neg Hafsa/uL (Negative) 04/30/17 11:49 Urine WBC (Auto) 2 /hpf (0-5) 04/30/17 11:49 Urine RBC (Auto) 6 /hpf (0-3) H 04/30/17 11:49 Ur Squamous Epith Cells 9 /hpf (0-5) H 04/30/17 11:49 Blood Type O POSITIVE 04/30/17 11:12 Antibody Screen Negative 04/30/17 11:12 - Hospital Course Hospital Course: PMHx: Likely streptococcal infection leading to rheumatic heart disease PSHx: Open heart surgery 2.5 years ago Allergies: NKDA Social: Denies ever smoking. Denies alcohol, drugs. Not currently employed. 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 Menarche 12yo On admission: This is a 27 year old albanian speaking female with PMHx rheumatic heart disease s/p mitral valve repair and stent who comes in complaining of chest pain. It began yesterday 04/29/17 and has been constant since. It is located diffusely across both sides of her chest with no radiation of pain. Patient is also experiencing pain in both shoulders and the front of the neck. Patient has had this type of pain before in [place] and was discharged without a specific diagnosis explained to the patient. Patient has associated palpitations and dizziness. Patient describes dizziness as feeling that the room is spinning. Patient denies numbness, shortness of breath, rashes. Patient has been given 650 mg Tylenol in the ED and reported improvement in pain. Patient had likely streptococcal infection in [place] described in the ED note as "tonsillitis" which led to development of rheumatic heart disease. Patient states that her mitral valve was blocked and had open heart surgery to repair and stent with a ring. This surgery occurred two and a half years ago. Per patient, she has been on an unknown blood thinner since the surgery but has stopped taking it about 4 months ago without notifying her doctor. Patient states that she did this because she was planning to conceive. Patient is about 6 weeks per b-HCG level interpretation. During Hospital Stay: ROMIS were negative x 3. Echocardiogram revealed EF of 30- 35%. Systolic function is moderately to severely impaired. Diastolic function is normal. Mild to moderate mitral regurgitation. Annuloplasty ring noted in mitral position. Dr. Hargrove, cardiology was consulted. Per Dr. Hargrove patient is to discontinue all of her medications and take Labteolol 50mg PO BID. It was explained to the patient that her is high risk. Dr. Boggs. DILAN was consulted. Transvaginal US showed live single intrauterine with crown-rump length is 0.6cm, compatible with GA 6wks and 2 days. FHR 130. Small subchorionic hemorrhage (1.7x0.8x1.1cm). Patient is to continue on vitamins. She is to avoid teratogenic medications (pt currently prescribed Ramipril which contains blackbox warning for females; Vastarel and Torsemide are both to be used with caution during as there is not enough data on their use; f/u Cardio for appropriate meds change). Beta HC, appropriately increasing. Patient is stable for discharge home per Dr. Hargrove, cardiology. She is to come to the [facility] at [facility] on ThursdayMay 05 at 9 AM to establish care and see DILAN As[place]. She is also to request a cardiology consult at this appointment in the clinic (she can come for cardiology appt with Dr. Booth in the clinic if she can't make an appointment with Dr. Hargrove on May 11 at 1PM) and she is to call Dr. Hargrove to make a follow up appointment for next week for post hospital care. She will also need to apply for the medical center care. Per cardiology she is to take Labetolol 50mg by mouth twice a day. She is not to take any of the medications given to her in [place] due to her being . She is a take a vitamin daily. She is to return to the emergency room if symptoms return. All instructions explained to the patient and she agrees. Patient stated she would not be able to call Dr. Hargrove to make an appointment because she does not speak Frisian. Patient was told to come to cardiology clinic at [facility] on May 11 at 1PM if this is the case for follow up. She is to follow up this Thursday morning for OBGYN clinic and will be given a referral to cardiology. *Please note this only a summary. Please refer to the EMR for full admission details. Discharge Exam - Head Exam Head Exam: ATRAUMATIC, NORMAL INSPECTION, NORMOCEPHALIC - Eye Exam Eye Exam: EOMI, Normal appearance, PERRL Pupil Exam: NORMAL ACCOMODATION - ENT Exam ENT Exam: Mucous Membranes Moist - Respiratory Exam Respiratory Exam: Accessory Muscle Use, NORMAL BREATHING PATTERN. absent: Respiratory Distress - Cardiovascular Exam Cardiovascular Exam: REGULAR RHYTHM, +S1, +S2 Additional comments: surgical scar over chest from valve repair - GI/Abdominal Exam GI & Abdominal Exam: Normal Bowel Sounds, Soft. absent: Distended, Firm, Guarding - Extremities Exam Extremities exam: normal inspection - Back Exam Back exam: NORMAL INSPECTION - Neurological Exam Neurological exam: Alert, CN II-XII Intact, Oriented x3 - Psychiatric Exam Psychiatric exam: Normal Affect, Normal Mood - Skin Skin Exam: Dry, Intact, Normal Color, Warm Discharge Plan - Discharge Medications Prescriptions: Labetalol [Trandate] 50 mg PO BID #60 tab Multivit/Folic Acid/I [ Plus] 1 tab PO DAILY 30 Days - Follow Up Plan Condition: GOOD Disposition: HOME/ ROUTINE Instructions: Labetalol (By mouth), Chest Pain (DC) Additional Instructions: Patient is stable for discharge home per Dr. Hargrove, cardiology. She is to come to the [facility] on ThursdayMay 05 at 9 AM to establish care and see DILAN Ashton. She is also to request a cardiology consult at this appointment in the clinic (she can come for cardiology appt with Dr. Booth in the clinic if she can't make an appointment with Dr. Hargrove on May 11 at 1PM) and she is to call Dr. Hargrove to make a follow up appointment for next week for post hospital care. She will also need to apply for the medical center care. Per cardiology she is to take Labetolol 50mg by mouth twice a day. She is not to take any of the medications given to her in [place] due to her being . She is a take a vitamin daily. She is to return to the emergency room if symptoms return. All instructions explained to the patient and she agrees. Referrals: [facility] at [facility] [Outside] Jas Booth MD [Staff Provider] - Ben Hargrove MD [Staff Provider] - David Boggs [Staff Provider] -
[2017-05-03] MEDS ORDERED: Pneumococcal 23-Valent Vaccine IM ONE (14:00)
== END 2017-05-02 15:20 | disposition home or self-care (01) | DRG 886 ==
LOC: C.ER 09:31 → C.9E 15:37 → C.5T 16:33 → C.6T 05-01 22:11 → OBSVTOIN 05-02 08:49
PROVIDERS: ADMIT Internal Medicine; ATTEND Internal Medicine
DX: O26.891 Other specified pregnancy related conditions, first trimester (principal); R07.89 Other chest pain; O20.8 Other hemorrhage in early pregnancy; I09.9 Rheumatic heart disease, unspecified; Z3A.01 Less than 8 weeks gestation of pregnancy; Z95.2 Presence of prosthetic heart valve